=== PATIENT | female | born 1975 | race Caucasian/White ===

== ENCOUNTER 2018-12-10 10:47 | Day surgery (SDC) | payer BC ==
[2018-12-07 16:20] VITALS: BP 119/69
[2018-12-07 16:40] LABS: EOSINOPHILS % (AUTO) 1.6 % (0.0-8.0); HEMATOCRIT 41.4 % (36-48); LYMPHOCYTES % (AUTO) 33.7 % (21.0-51.0); MEAN CORPUSCULAR HEMOGLOBIN 27.4 pg (27.0-33.0); MEAN CORPUSCULAR HGB CONC 32.6 g/dL (32.0-36.0); MEAN CORPUSCULAR VOLUME 83.8 fL (79-99); MONOCYTES % (AUTO) 4.5 % (3.0-13.0); NEUTROPHILS % (AUTO) 59.2 % (40.0-77.0); PLATELET COUNT (AUTO) 366 K/uL (130-400); RED BLOOD CELL COUNT(AUTO) 4.93 MIL/uL (4.00-5.50); RED CELL DISTRIBUTION WIDTH 14.5 % (11.0-15.5); WHITE BLOOD COUNT (AUTO) 10.7 K/uL (4.8-10.8)
[2018-12-07 16:52] LABS: CREATININE 1.1 mg/dL (0.5-1.5); POTASSIUM 3.9 mmol/L (3.5-5.1)
[~2018-12-10] VITALS: Ht 176.5 cm; Wt 91.4 kg
[2018-12-10] VITALS (14 sets, daily range): BP systolic 103–140; BP diastolic 38–74
[~2018-12-10 10:47] MED LIST: LORA0.5T2 PO; LURA60TA PO; NAPR-1023 PO; NAPR220T57 PO; TYL3 PO
[2018-12-10] MEDS ORDERED: LACTATED RINGERS 1000ML 1,000 ML IV ONE (11:18)
[2018-12-10] MEDS: CEFAZOLIN SODIUM 1 GM VIAL ONE ×2 (11:35→13:55)
[2018-12-10] MEDS ORDERED: EPINEPHRINE 1 MG/ML 30ML VIAL IJ ONE (11:59)
[2018-12-10] MEDS ORDERED: LIDOCAINE PF 2% 5ML ABBOJECT ONE (12:45)
[2018-12-10] MEDS ORDERED: SUCCINYLCHOLINE 200MG/10ML SYR ONE (12:45)
[2018-12-10] MEDS ORDERED: DEXAMETHASONE SOD PHOSPHATE 10MG/ML 1ML VIAL ONE (12:45)
[2018-12-10] MEDS ORDERED: ONDANSETRON HCL 4 MG/2 ML VIAL ONE (12:45)
[2018-12-10] MEDS ORDERED: GLYCOPYRROLATE 1 MG/5 ML SYRINGE ONE (12:46)
[2018-12-10] MEDS ORDERED: ROCURONIUM 10MG/1ML SYR 10 MG/ML ML ONE (12:47)
[2018-12-10] MEDS ORDERED: NEOSTIGMINE 5MG/5ML SYR IV ONE (12:47)
[2018-12-10] MEDS ORDERED: PROPOFOL 10 MG/ML 20ML VIAL IV ONE (12:47)
[2018-12-10] MEDS ORDERED: MIDAZOLAM HCL 1 MG/ML 2ML VIAL ONE ×2 (12:47→13:14)
[2018-12-10] MEDS ORDERED: FENTANYL CITRATE PF 50 MCG/1 ML 2ML VIAL ONE ×3 (12:48→14:54)
[2018-12-10] MEDS ORDERED: MEPERIDINE-PF 25 MG/ML SYG ONE (15:30)
[2018-12-10] MEDS ORDERED: CEPH500B PO (15:31)
[2018-12-10] MEDS ORDERED: HYDR-4457 PO (15:31)
[2018-12-10] MEDS ORDERED: MORPHINE SULFATE 4 MG/1ML SYG ONE (15:41)
--- NOTE | 2018-12-10 16:25 | NUR ---
NEW RECEIVED PT FROM PACU, S/P RIGHT SHOULDER ARTHROSCOPY, DRESSING X 3 TO RIGHT SHOULDER DRY AND INTACT, ARM SLING IN PLACE, SWELLING NOTED TO SITE. PT HAD NERVE BLOCK, UNABLE TO WIGGLE FINGERS. NEUROVASCULAR CHECKS WNL. PT VS STABLE ON ARRIVAL. PATIENT STABLE.
--- NOTE | 2018-12-10 17:00 | NUR ---
DC PT DC HOME VIA WC, NO DISTRESS NOTED. DENIES ANY PAIN OR DISCOMFORTS.
== END 2018-12-10 17:00 | disposition home or self-care (01) ==
LOC: DAH 10:47
PROVIDERS: ATTEND Orthopaedic Surgery
DX: M75.101 Unspecified rotator cuff tear or rupture of right shoulder, not specified as traumatic (principal); M75.01 Adhesive capsulitis of right shoulder; M65.811 Other synovitis and tenosynovitis, right shoulder; Z98.890 Other specified postprocedural states; Z79.899 Other long term (current) drug therapy; G89.29 Other chronic pain; Z68.30 Body mass index [BMI] 30.0-30.9, adult; M25.511 Pain in right shoulder
CPT/HCPCS: 29820; 36415; 64415; 80048; 84703; 85025; A4218; A4565; A4649 ×2; A4930; A6204; G0168; J0171; J0330; J0690; J1100; J2001; J2175; J2250 ×2; J2270; J2405; J2704; J2710; J3010 ×3; J3490; J7120 ×2